=== PATIENT | female | born 1960 ===

== ENCOUNTER 2020-09-07 07:40 | Outpatient (CLI) | payer OTHER, SELFPAY ==
--- NOTE | 2020-09-23 10:19 | WPDHOMESLEEP ---
Sleep Study - Home Unattended Date of Study: 09/07/20 Ordering Provider: Robbin Lorenzo MD Interpreting Physician: Rhonda Grullon MD Home Sleep Study Type: Watch PAT Height: 1.6 m Weight: 78.471 kg Body Mass Index: 30.6 Neck Circumference (inches): 15 [place]: 10 Reason for Sleep Study Waking up during the night, difficulty breathing at night Sleep History Machelle Louie is a 60 year old female with hip and knee pain which bothers her at night. She has worked on concrete for many years and has discomfort in her joints which wakes her from sleep. She also has COPD. She occasionally snores. She occasionally awakens at night with heartburn, belching and coughing. She frequently awakens from sleep feeling short of breath. She occasionally has trouble sleep with a cold. She rarely gasp for breath at night and rarely has breathing problems at night observed by others. She does not sweat excessively at night or notice her heart pounding irregularly at night. She does not fall asleep during the day, fall asleep involuntarily or while driving. She does not fall asleep during physical effort. She does not have loss of muscle tone with strong emotion. She rarely has daytime difficulties due to excessive sleepiness. She does not feel paralyzed on waking or falling asleep and does not have vivid dreamlike scenes upon awakening or falling asleep. She is not afraid to go to sleep. She does not have nightmares and she does not remember dreams. She occasionally has racing thoughts, occasionally has feelings of sadness and depression. She constantly has anxiety. She does not have muscular tension and does not notice part of her body jerking. She occasionally kicks at night. She does not have crawling and aching feelings in her legs at night. She occasionally has leg pain at night. She denies morning jaw pain and does not grind her teeth at night. She frequently is bothered by pain during the day and is awakened by pain at night. She constantly wakes up feeling stiff in the morning. She occasionally wakes up with sore achy muscles and pain in the neck and spine. She has fatigue, sexual problems, memory problems, concentration difficulties, feels depressed and unable to relax. She sleeps with a small dog in her bed. Normal bedtime is between 7:00 p.m. and 8:00 p.m. taking 30-45 minutes to fall asleep typically waking 2-3 times at night long enough to get a drink of water and use the bathroom. She wakes the morning at 3:00 a.m.. She does take naps in the day when she can. Short nap does not refreshed her. She is usually drowsy in the morning for 1 hour or longer. She feels better in the morning compared to other times of day. Habits: tobacco 1 pack per day. No caffeine. Alcohol 3 or 4 beers per week. No recreational drug [facility] Past Medical History Medical History Anxiety and depression Asthma COPD (chronic obstructive pulmonary disease) Hypertension Social History Social History (Updated 09/23/20 @ 10:40 by Rhonda Grullon MD) Social History: Works at [employer], previosuly worked at a [employer]. Has 100 pack year history of tobacco, started age 14. Smoking packs per day: 1 Smoking cigarettes per day: 20.0 Smoking status: Current every day smoker Alcohol intake: current Drinks per week: 3 Alcohol use details: 3-4 beers a week Medications Medications: Albuterol HFA 2 puffs q.4 hours p.r.n. shortness of breath bupropion S are 150 mg q.12 hours vitamin D3 5000 units daily sertraline 50 mg daily Trelegy Ellipta 100/65.5/251 puff daily verapamil ER 120 mg a day nap % 220 mg q.12 hours p.r.n. pain nicotine patch 7 mg per day Sleep Procedure The sleep study was completed using wmblyT a technically adequate device with seven channels: peripheral arterial tone, actigraphy, body position, snore, respiratory movement, pulse oximetry, sleep staging, and
[2020-09-23 11:01] VITALS: BMI 30.6
== END 2020-09-07 07:41 | disposition home or self-care (01) ==
LOC: ANHCSM 07:42
PROVIDERS: Visit Provider Student in an Organized Health Care Education/Training Program
DX: G47.10 Hypersomnia, unspecified (principal)
CPT/HCPCS: 95800